=== PATIENT | female | born 1985 | race African-American/Black ===

== ENCOUNTER 2019-12-22 21:09 | Emergency (ER) | payer SELFPAY ==
[~2019-12-22] VITALS: Ht 162.6 cm; Wt 87.0 kg
[~2019-12-22 21:09] MED LIST: ATEN50TA
[2019-12-22] MEDS ORDERED: IBUPROFEN 600MG TABLET PO ONE (23:00)
[2019-12-22] MEDS ORDERED: AMOXICILLIN 500 MG CAPSULE PO ONE (23:00)
[2019-12-22 23:04] VITALS: BP 166/84
== END 2019-12-22 23:22 | disposition home or self-care (01) ==
LOC: ER 21:09
DX: L03.113 Cellulitis of right upper limb (principal); I10 Essential (primary) hypertension
CPT/HCPCS: 99283

== ENCOUNTER 2020-04-25 16:26 | Emergency (ER) | payer SELFPAY ==
[~2020-04-25] VITALS: Ht 167.6 cm; Wt 89.0 kg
[2020-04-25 16:53] VITALS: BP 152/94
== END 2020-04-25 18:01 | disposition home or self-care (01) ==
LOC: ER 16:26
DX: I10 Essential (primary) hypertension (principal); Z76.0 Encounter for issue of repeat prescription; Z90.49 Acquired absence of other specified parts of digestive tract
CPT/HCPCS: 99281